=== PATIENT | male | born 1960 | race Two or more races ===

== ENCOUNTER → 2017-02-03 | Outpatient (CLI) | payer MEDICARE, OTHER | END | disposition home or self-care (01) | LOC: HKI 09:01 | PROVIDERS: ATTEND Orthopaedic Surgery | DX: M25.551 Pain in right hip (principal); M87.151 Osteonecrosis due to drugs, right femur; I73.9 Peripheral vascular disease, unspecified | CPT/HCPCS: G0463 ==